=== PATIENT | female | born 1975 | race Caucasian/White ===

== ENCOUNTER 2020-10-12 09:39 | Emergency (ER) | payer MEDICARE, MEDICAID, SELFPAY ==
[2020-10-12 09:48] VITALS: BP 140/63; PULSE 68; RESP 16; TEMP 36.7; O2SAT 100; BMI 30.6
--- NOTE | 2020-10-12 10:16 | XR_ITS ---
EXAMINATION: XR CHEST CLINICAL INFORMATION: Pneumonia COMPARISON: 07/01/2019 TECHNIQUE: Frontal view of the chest was obtained. FINDINGS: The lungs are well expanded. There is no focal consolidation, edema, or effusion. No pneumothorax. The cardiomediastinal silhouette is within normal limits. No acute osseous abnormality. XR/XR chest 1V IMPRESSION: Clear lungs.
--- NOTE | 2020-10-12 10:29 | ED_ITS ---
HPI - General Adult General Chief complaint: General Medical Stated complaint: HEADACHE,DIZZY,NO TASTE OR SMELL Time Seen by Provider: 10/12/20 10:08 Source: patient Mode of arrival: ambulatory History of Present Illness HPI narrative: patient presents to the ED for headache, bilateral ear pain, with loss of smell and taste. Patient states her ex-boyfriend was around her the past couple of days ago coughing and was positive for pneumonia. She states her ex boyfriend is awaiting his COVID test results. Patient denies any nausea, vomiting, neck stiffness, night sweats, chills, or altered mental status. Patient does not describe dizziness as room spinning. Patient states just feels fatigued. Patient denies any slurred speech, loss of vision, paralysis of extremities, facial droop, or any recent head trauma. Patient denies any eye pain. Related Data Previous Rx's Medication Instructions Recorded naproxen 500 mg PO BID PRN #20 tab 10/12/20 Allergies Allergy/AdvReac Type Severity Reaction Status Date / Time mushroom Allergy Mild RASH Verified 10/12/20 09:52 amoxicillin [AMOXICILLIN] Allergy Unknown RASH Verified 10/12/20 09:52 Penicillins Allergy Unknown SHORTNESS Verified 10/12/20 09:52 OF BREATH/RASH TO CILLINS Review of Systems Review of Systems: Yes all other systems are reviewed and are negative Constitutional: Constitutional: Reports as per HPI, Reports no additional constitutional complaints, Reports fatigue and Reports headache(s) Comments: Loss of taste and smell Eyes: Eyes: Reports as per HPI and Reports no additional eye complaints ENT: Reports system reviewed and no additional complaints, except as documented, Reports as per HPI, Reports otalgia ( bilaterally) and Reports headache(s) Cardiovascular: Cardiovascular: Reports as per HPI and Reports no additional cardiovascular complaints Respiratory: Respiratory: Reports as per HPI and Reports no additional respiratory complaints Gastrointestinal: Gastrointestinal: Reports as per HPI and Reports no additional gastrointestinal complaints Genitourinary: Genitourinary: Reports no additional female genitourinary complaints and Reports as per HPI Musculoskeletal: Musculoskeletal: Reports no additional musculoskeletal complaints and Reports as per HPI Neurologic: Reports system reviewed and no additional complaints, except as documented, Reports as per HPI and Reports headache(s) Psychiatric: Psychiatric: Reports no additional psychiatric complaints and Reports as per HPI Endocrine: Endocrine: Reports fatigue PMFSH Past Medical History Medical History (Updated 10/12/20 @ 12:12 by YOLETTE Bennett) Ectopic HIV (human immunodeficiency virus infection) Surgical History (Updated 10/12/20 @ 09:51 by Lori Short) Hx of breast reduction, elective Hx of removal of ovary Social History Social History Smoking Status: Never smoker Use of substances other than those prescribed or required for medical reasons: No Advance Directives: No Advance Directives Information Provided: Yes Physical Exam Vital Signs: Vital Signs: Last Vital Signs Temp 98.2 F 10/12/20 11:41 Pulse 56 10/12/20 11:41 Resp 16 10/12/20 09:48 BP 139/86 10/12/20 11:41 Pulse Ox 100 10/12/20 11:41 Body Mass Index 30.6 Const: General: cooperative, healthy appearing, comfortable and no acute distress Orientation/consciousness: patient oriented x3 HENMT: Head: Yes normal to inspection, Yes No palpable skull fracture present, Yes atraumatic, No Joaquin's sign, No cranial bruits, No raccoon eyes and No Temporal artery tenderness present Ears: hearing grossly normal bilaterally, external ears normal and TM's normal bilaterally Throat: Yes posterior oropharynx normal, Yes tonsils normal and Yes uvula midline Eyes: Other: negative for nystagmus. Negative for photophobia General: appearance normal, both eyes and all related structures Neck: Neck: Yes normal visual inspection, Yes full ROM, Yes no lymphadenopathy, Yes no meningeal signs and Yes trachea midline Chest: Chest palpation & inspection: normal inspection of the chest, normal palpation of entire chest wall and no localized rib tenderness Resp: Effort & Inspection: normal respiratory effort and able to speak in complete sentences Auscultation: clear to auscultation bilaterally, no crackles, no rales and no rhonchi GI: Inspection: Yes normal to inspection and No abdominal wall ecchymosis Palpation (GI): Soft to palpation, not firm, nontender, no guarding and not rigid : General: No CVA tenderness and Yes no CVA tenderness Back/Spine/Pelvis: Back: no CVA tenderness, No CVA tenderness and No back tenderness Skin: General skin exam: no rashes or lesions noted Neuro: Other: negative for facial droop. negative pronator drift. Cranial nerves intact. Motor and strength of all extremities are intact and equal. General: patient oriented x3, gait normal, no meningeal signs and CN's II-XI intact bilaterally Cranial nerves: Yes CN's II-XII intact bilaterally Extrem: General: Yes normal to inspection and Yes full ROM Psych: Appearance: grossly normal, well kempt and not disheveled Course Course Course Narrative: History physical exam does not indicate meningitis or stroke. History physical exam indicate more viral syndrome. Patient had chest x-ray to rule out pneumonia. Patient also have COVID swab sent. Patient given Fioricet and Zofran for symptom of relief. Presently no labs indicated. Reevaluation(s) Reevaluation #1: patient headache relieved with meds. Presently once again unlikely patient having meningitis. Case discussed with attending Dr. 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 Patient presently not presenting with similar presentation for herpes virus meningitis. Patient states headache with loss of smell and loss of taste and possible COVID exposure. Patient will be discharged. Patient informed to return to the ED immediately if headaches worsen, altered mental status, neck stiffness, fever, chills, or any other concerning symptoms. patient informed signs of bacterial and aseptic meningitis. Patient's chest x-ray came back normal. Dr. Burch agree patient can be discharge. No head CT indicated. History and physical exam does not indicate neuro deficit. Time: 12:10 Medical Decision Making MDM Narrative Medical decision making narrative: Viral Syndrome Discharge Plan Discharge Clinical Impression: Acute viral syndrome Patient Disposition: Home, Self-Care Instructions: Acute Headache (ED), Viral Syndrome (ED) Additional Instructions: return to the ED immediately for worsening headache, fever, chills, neck stiffness, nausea, vomiting, weakness, slurred speech, loss of vision, or any other concerning symptoms. recommend 14 days self-isolation if COVID test come back positive. Prescriptions: New naproxen 500 mg tablet 500 mg PO BID PRN (Reason: pain) Qty: 20 RF: 0 Referrals: Cortez Corral MD [Primary Care Provider] - 2 days ( Viral syndrome. COVID swab pending.) Stand Alone Forms: Work/School Release Interventions: ED Discharge Assessment Last Done: 10/12/20 12:33 Discharge Date/Time: 10/12/20 12:34 Print Language: Latvian
[2020-10-12 11:41] VITALS: BP 139/86; PULSE 56; TEMP 36.8; O2SAT 100
--- NOTE | 2020-10-12 11:42 | PC.NURSE ---
Pt calm and cooperative in no apparent distress. Covid swab sent by previous RN. Awaiting results. VSS at this time. Pt informed on plan.
== END 2020-10-12 12:34 | disposition home or self-care (01) ==
PROVIDERS: Physician Assistant; Emergency Provider Emergency Medicine; PCP Internal Medicine
DX: B34.9 Viral infection, unspecified (principal); H92.03 Otalgia, bilateral; R51.9 Headache, unspecified; Z20.828 Contact with and (suspected) exposure to other viral communicable diseases
CPT/HCPCS: 71045; 99283; 99284; U0003

== ENCOUNTER 2021-08-03 12:44 | Outpatient (REF) | payer MEDICARE, MEDICAID, SELFPAY ==
--- NOTE | ~2021-08-03 | MM_ITS ---
EXAMINATION: MM SCREENING DIGITAL BREAST TOMOSYNTHESIS, BILATERAL CLINICAL INFORMATION: Screening. Asymptomatic. The lifetime risk of breast cancer based on the Tyrer-Cuzick Model is 8%. COMPARISON: Mammography: 07/28/2020, 01/07/2019, 12/29/2017 (baseline) TECHNIQUE: Digital breast tomosynthesis is performed in both the craniocaudal and mediolateral oblique views along with computer-aided detection (CAD). Synthesized 2D images are generated from the tomosynthesis. FINDINGS: The breasts are heterogeneously dense, which may obscure small masses (ACR BI-RADS breast composition Category c). Breast tissue composition borders on extremely dense. The parenchymal pattern is similar to prior exams. There is no developing density, significant mass, architectural abnormality. Right MLO view includes more of the lower posterior axilla and achieved previously. Small right axillary node is demonstrated. Again, there are scattered bilateral punctate calcifications. The skin contours are smooth. No significant changes. MM/MM tomosynthesis screening BI IMPRESSION: No mammographic evidence of malignancy. ASSESSMENT: BI-RADS 2: Benign RECOMMENDATION: Routine annual mammography screening. This patient's information was entered into a reminder system with a target due date for their next mammogram.
== END 2021-08-03 12:45 | disposition home or self-care (01) ==
LOC: HO.MAMMO 12:44
PROVIDERS: PCP Internal Medicine; Visit Provider Obstetrics & Gynecology
DX: Z12.31 Encounter for screening mammogram for malignant neoplasm of breast (principal)
CPT/HCPCS: 77063; 77067

== ENCOUNTER 2022-08-09 07:58 | Outpatient (REF) | payer MEDICARE, MEDICAID, SELFPAY ==
--- NOTE | ~2022-08-09 | MM_ITS ---
EXAMINATION: MM SCREENING DIGITAL BREAST TOMOSYNTHESIS, BILATERAL CLINICAL INFORMATION: Screening. Asymptomatic. The lifetime risk of breast cancer based on the Tyrer-Cuzick Model is 7.4%. COMPARISON: Mammography: August 03, 2021 and studies dating back to December 29, 2017 TECHNIQUE: Digital breast tomosynthesis is performed in both the craniocaudal and mediolateral oblique views along with computer-aided detection (CAD). Synthesized 2D images are generated from the tomosynthesis. FINDINGS: The breasts are heterogeneously dense, which may obscure small masses (ACR BI-RADS breast composition Category c). There are no significant masses, abnormal calcifications, or other abnormalities. MM/MM tomosynthesis screening BI IMPRESSION: No significant changes from prior exam. ASSESSMENT: BI-RADS 1: Negative RECOMMENDATION: Routine annual mammography screening. This patient's information was entered into a reminder system with a target due date for their next mammogram.
== END 2022-08-09 07:59 | disposition home or self-care (01) ==
LOC: HO.MAMMO 07:58
PROVIDERS: PCP Internal Medicine; Visit Provider Internal Medicine
DX: Z12.31 Encounter for screening mammogram for malignant neoplasm of breast (principal)
CPT/HCPCS: 77063; 77067

== ENCOUNTER → 2023-03-14 12:50 | Outpatient (BNVA) | payer MEDICARE, MEDICAID, SELFPAY | PROVIDERS: PCP Internal Medicine; Visit Provider Physician Assistant | DX: M53.3 Sacrococcygeal disorders, not elsewhere classified (principal); G89.29 Other chronic pain | CPT/HCPCS: Q3014 ==

== ENCOUNTER → 2023-08-19 08:15 | Outpatient (BNV) | payer MEDICARE, MEDICAID, SELFPAY | PROVIDERS: Visit Provider Radiology Diagnostic Radiology | DX: Z12.31 Encounter for screening mammogram for malignant neoplasm of breast (principal) | CPT/HCPCS: 77063; 77067 ==

== ENCOUNTER 2023-08-19 08:20 | Outpatient (REF) | payer MEDICARE, MEDICAID, SELFPAY ==
--- NOTE | ~2023-08-19 | MM_ITS ---
EXAMINATION: MM SCREENING DIGITAL BREAST TOMOSYNTHESIS, BILATERAL CLINICAL INFORMATION: Screening. Asymptomatic. The patient has had a prior breast reduction. COMPARISON: Mammography: This study is compared with prior exams dating back to 2019. TECHNIQUE: Digital breast tomosynthesis is performed in both the craniocaudal and mediolateral oblique views along with computer-aided detection (CAD). Synthesized 2D images are generated from the tomosynthesis. FINDINGS: The breasts are heterogeneously dense, which may obscure small masses (ACR BI-RADS breast composition Category c). There are no significant masses, abnormal calcifications, or other abnormalities. Post reduction changes are present in each breast. MM/MM tomosynthesis screening BI IMPRESSION: No mammographic evidence of malignancy. ASSESSMENT: BI-RADS BI-RADS 1 - Negative RECOMMENDATION: Routine annual mammography screening. 1 year F/U This examination should not preclude the clinical evaluation of a suspicious palpable abnormality. This patient's information was entered into a reminder system with a target due date for their next mammogram.
== END 2023-08-19 08:21 | disposition home or self-care (01) ==
LOC: HO.MAMMO 08:20
PROVIDERS: Visit Provider Internal Medicine
DX: Z12.31 Encounter for screening mammogram for malignant neoplasm of breast (principal)
CPT/HCPCS: 77063; 77067

== ENCOUNTER 2024-08-27 07:43 | Outpatient (REF) | payer MEDICARE, MEDICAID, SELFPAY ==
--- NOTE | ~2024-08-27 | MM_ITS ---
EXAMINATION: MM SCREENING DIGITAL BREAST TOMOSYNTHESIS, BILATERAL CLINICAL INFORMATION: Screening. Asymptomatic. COMPARISON: Mammography: Comparison is made with available priors TECHNIQUE: Digital breast mammography with tomosynthesis is performed in both the craniocaudal and mediolateral oblique views along with computer-aided detection (CAD). FINDINGS: The breasts are extremely dense, which lowers the sensitivity of mammography (ACR BI-RADS breast composition Category d). Bilateral reduction mammoplasty changes. There are no significant masses, abnormal calcifications, or other abnormalities. MM/MM tomosynthesis screening BI IMPRESSION: No mammographic evidence of malignancy. ASSESSMENT: BI-RADS BI-RADS 2 - Benign Findings RECOMMENDATION: Routine annual mammography screening. 1 year F/U This examination should not preclude the clinical evaluation of a suspicious palpable abnormality. This patient's information was entered into a reminder system with a target due date for their next mammogram. Electronically signed by: Layla Arauz DO 09/05/2024 06:36 PM EDT
== END 2024-08-27 07:44 | disposition home or self-care (01) ==
LOC: HO.MAMMO 07:43
PROVIDERS: PCP Internal Medicine; Visit Provider Internal Medicine
DX: Z12.31 Encounter for screening mammogram for malignant neoplasm of breast (principal)
CPT/HCPCS: 77063; 77067

== ENCOUNTER → 2024-08-27 08:00 | Outpatient (BNV) | payer MEDICARE, MEDICAID, SELFPAY | PROVIDERS: PCP Internal Medicine; Visit Provider Internal Medicine | DX: Z12.31 Encounter for screening mammogram for malignant neoplasm of breast (principal) | CPT/HCPCS: 77063; 77067 ==

== ENCOUNTER 2025-10-18 08:47 | Outpatient (REF) | payer MEDICARE, MEDICAID, SELFPAY ==
--- OUTSIDE RECORDS SUMMARY | 2025-03-03 05:00 | XMS_ITS ---
Author Organization [email or web address] Address [address], [place] [id number] Care Team Providers Care Heavy Equipment Service Manager Name Role Phone ISRA LUCAS Primary Care Provider [phone] ALLERGIES Allergen (clinical drug ingredient) Drug/Non Drug Allergy documented on EMR Reaction Allergy Type Onset Date Status amoxicillin Amoxicillin rash, throat swelling, cough Drug Allergy Active REASON FOR REFERRAL Reason HOLD FOR LOCKED NOTE Referral for colonoscopy Diagnosis 1 Colon cancer screeni kate (Z12.11) Referral Organization [facility] Referring Provider First Name ISRA Referring Provider Last Name SHAYY Referring Provider Speciality Internal M edicine Referred Provider SUNNY SIMON Referred Provider Specialty Gastroentero logy General Notes HOLD FOR LOCKED NOTE Referral Priority Urgent REASON FOR VISIT NPT/AWV, covid screen negative MEDICATIONS Medication SIG (Take, Route, Fr equency, Duration) Notes Start Date End Date Status Biktarvy 50-200-25 MG take 1 tablet by o ral route every day Oral Active Wellbutrin XL 150 MG take 1 tablet by or al route every day Oral Active LORazepam 0.5 MG 1 tablet as needed O rally Once a day Active SOCIAL HISTORY Tobacco Use: Social History Observation Description Date Details (start date - stop date) Never Smoker NA - NA Sex Assigned At : Social History Observation Description Sex Assigned At Unknown Smoking Question Answer Notes Are you a: never smoker PROBLEMS Problem Type ICD Code Onset Dates Problem Status W/U Status Risk SNOMED Code Notes Problem Degeneration of intervertebral disc of lumbar region with discogenic back pain and lower extremity pain (M51.362) Active confirmed 75464694 Problem Morbid (severe) obesity due to excess calories (E66.01) Active confirmed 828191828 Problem Body mass index [BMI] 35.0-35.9, adult (Z68.35) Active confirmed 807204103 Problem Obesity, class 2 (E66.812) Active confirmed [id number] VITAL SIGNS Height 63.75 in 03/03/2025 Weight 205.4 lbs 03/03/2025 Blood pressure systolic 136 mm Hg 03/03/20 25 Blood pressure diastolic 84. 126 mm Hg 025 BMI 35.53 kg/m2 03/03/2025 Encounters Encounter Location Date Provider Diagnosis [facility] [address] [place] [address] 03/03/2025 [facility] Human immunodeficien cy virus [HIV] disease B20 ; Vitamin D deficiency, unspecified E55.9 ; Degeneration of intervertebral disc of lumbar region with discogenic back pain and lower extremity pain M51.362 ; Morbid (severe) obesity due to excess calories E66.01 ; Body mass index [BMI] 35.0-35.9, adult Z68.35 ; Obesity, class 2 E66.812 ; Elevated blood pressure reading R03.0 ; Encounter for general adult medical examination with abnormal findings Z00.01 and Colon cancer screening Z12.11 ASSESSMENTS Encounter Date Diagnosis Assessment Notes Treatment Notes Treatment Clinical Notes Section Notes 03/03/2025 Human immunodeficiency virus [HIV] disease (ICD-10 - B20) 1. Routine healthcare maintenance: Needs colonoscopy. Will refer. She will update fasting blood work 2. HIV: Will update labs on current Biktarvy 3. Vitamin D deficiency: Will update level. She is currently off supplementation 4. Lumbar degenerative disc disease: She plans to follow-up with for further recommendations 5. Obesity: We will check an A1c and thyroid function along with blood work. Questionable for GLP-1 agonist 6. Elevated blood pressure: Improved over the course of her visit. No treatment at this time 03/03/2025 Vitamin D deficiency, unspecified (ICD-10 - E55.9) 1. Routine healthcare maintenance: Needs colonoscopy. Will refer. She will update fasting blood work 2. HIV: Will update labs on current Biktarvy 3. Vitamin D deficiency: Will update level. She is currently off supplementation 4. Lumbar degenerative disc disease: She plans to follow-up with for further recommendations 5. Obesity: We will check an A1c and thyroid function along with blood work. Questionable for GLP-1 agonist 6. Elevated blood pressure: Improved over the course of her visit. No treatment at this time 03/03/2025 Degeneration of intervertebral disc of lumbar region with discogenic back pain and lower extremity pain (ICD-10 - M51.362) 1. Routine healthcare maintenance: Needs colonoscopy. Will refer. She will update fasting blood work 2. HIV: Will update labs on current Biktarvy 3. Vitamin D deficiency: Will update level. She is currently off supplementation 4. Lumbar degenerative disc disease: She plans to follow-up with for further recommendations 5. Obesity: We will check an A1c and thyroid function along with blood work. Questionable for GLP-1 agonist 6. Elevated blood pressure: Improved over the course of her visit. No treatment at this time 03/03/2025 Morbid (severe) obesity due to excess calories (ICD-10 - E66.01) 1. Routine healthcare maintenance: Needs colonoscopy. Will refer. She will update fasting blood work 2. HIV: Will update labs on current Biktarvy 3. Vitamin D deficiency: Will update level. She is currently off supplementation 4. Lumbar degenerative disc disease: She plans to follow-up with for further recommendations 5. Obesity: We will check an A1c and thyroid function along with blood work. Questionable for GLP-1 agonist 6. Elevated blood pressure: Improved over the course of her visit. No treatment at this time 03/03/2025 Body mass index [BMI] 35.0-35.9, adult (ICD-10 - Z68.35) 1. Routine healthcare maintenance: Needs colonoscopy. Will refer. She will update fasting blood work 2. HIV: Will update labs on current Biktarvy 3. Vitamin D deficiency: Will update level. She is currently off supplementation 4. Lumbar degenerative disc disease: She plans to follow-up with for further recommendations 5. Obesity: We will check an A1c and thyroid function along with blood work. Questionable for GLP-1 agonist 6. Elevated blood pressure: Improved over the course of her visit. No treatment at this time 03/03/2025 Obesity, class 2 (ICD-10 - E66.812) 1. Routine healthcare maintenance: Needs colonoscopy. Will refer. She will update fasting blood work 2. HIV: Will update labs on current Biktarvy 3. Vitamin D deficiency: Will update level. She is currently off supplementation 4. Lumbar degenerative disc disease: She plans to follow-up with for further recommendations 5. Obesity: We will check an A1c and thyroid function along with blood work. Questionable for GLP-1 agonist 6. Elevated blood pressure: Improved over the course of her visit. No treatment at this time 03/03/2025 Elevated blood pressure reading (ICD-10 - R03.0) 1. Routine healthcare maintenance: Needs colonoscopy. Will refer. She will update fasting blood work 2. HIV: Will update labs on current Biktarvy 3. Vitamin D deficiency: Will update level. She is currently off supplementation 4. Lumbar degenerative disc disease: She plans to follow-up with for further recommendations 5. Obesity: We will check an A1c and thyroid function along with blood work. Questionable for GLP-1 agonist 6. Elevated blood pressure: Improved over the course of her visit. No treatment at this time 03/03/2025 Encounter for general adult medical examination with abnormal findings (ICD-10 - Z00.01) 1. Routine healthcare maintenance: Needs colonoscopy. Will refer. She will update fasting blood work 2. HIV: Will update labs on current Biktarvy 3. Vitamin D deficiency: Will update level. She is currently off supplementation 4. Lumbar degenerative disc disease: She plans to follow-up with for further recommendations 5. Obesity: We will check an A1c and thyroid function along with blood work. Questionable for GLP-1 agonist 6. Elevated blood pressure: Improved over the course of her visit. No treatment at this time 03/03/2025 Colon cancer screening (ICD-10 - Z12.11) 1. Routine healthcare maintenance: Needs colonoscopy. Will refer. She will update fasting blood work 2. HIV: Will update labs on current Biktarvy 3. Vitamin D deficiency: Will update level. She is currently off supplementation 4. Lumbar degenerative disc disease: She plans to follow-up with for further recommendations 5. Obesity: We will check an A1c and thyroid function along with blood work. Questionable for GLP-1 agonist 6. Elevated blood pressure: Improved over the course of her visit. No treatment at this time PLAN OF TREATMENT Medication Medication Name Sig Start Date Stop Date Notes Biktarvy 50-200-25 MG take 1 tablet by o ral route every day Oral Future Test Test Name Order Date CBC With Differential/Platelet-[id number] Referrals Referral Date Details HOLD FOR LOCKED NOTE Referral for SUNNY lindquist Next Appt Details Follow Up: 3 Months, Reason: Provider Name:ISRA LUCAS , 10/31/2025 02:45:00 PM, [address] [place], [address], Progress Notes * Examination Category Sub-Category Detail Notes Category Not es General Examination HEENT: PERRLA, EOMI bilatera lly, nose clear Neck: supple, no lymphaden opathy, no thyromegaly Heart: RSR, normal S1S2 Lungs: clear to auscultatio n Abdomen: soft, non tender/non distended, no rebound tenderness, no guarding or rigidity Extremities: no edema General Appearance no apparent distress , pleasant Skin: normal, no rash Neuro alert and oriented x 3, gait normal Oral cavity: no lesions Peripheral pulses: Bilateral radial pre sent, Bilateral posterior tibial present, BilateralCarotids present No Bruits, Back: no CVA tenderness, s traight leg raise normal, , no spinal tenderness Lymphatics No nodes in neck Psych: oriented X 3, affect normal History and Physical Notes * HPI (History of Present Illness) Category Sub-Category Detail Notes Category Not es Depression Screening PHQ-2 (2015 Edition) Little interest or pleasure in doing things?: Several days Patient is feeling generally well except for ongoing low back pain. She reports sent her to a toll transmission worker for injections ( ? Dr Mayfield) but these have not been helpful and are very painful to her when receiving. She reports mood is stable on current medication. She has been taking her antivirals faithfully as ordered and is due to see infectious disease in a little over a week Feeling down, depressed, or hopeless?: N ot at all Total Score: 1 Consultation Request Notes Referral Date Referring Provider Referred Provider Not es 03/03/2025 ISRA LUCAS JOANNA HOLD FOR ExpertFileED NOTE Referral for colonoscopy
--- OUTSIDE RECORDS SUMMARY | 2025-03-07 01:45 | XMS_ITS ---
Author Organization [facility] Address [address] [place], [place] [id number] Care Team Providers Care Ball Sorter Name Role Phone ISRA LUCAS Primary Care Provider [phone] REASON FOR VISIT labs Encounters Encounter Location Date Provider Diagnosis [facility] [address] [place] [phone] 03/07/2025 ISRA LUCAS PLAN OF TREATMENT Next Appt Details Provider Name:ISRA LUCAS , 10/31/2025 02:45:00 PM, [address] [place], [phone],
--- OUTSIDE RECORDS SUMMARY | 2025-09-04 04:30 | XMS_ITS ---
Author Organization [facility] Address [address], [place] [id number] Care Team Providers Care Sales And Marketing Manager Name Role Phone ISRA LUCAS Primary Care Provider ALLERGIES Allergen (clinical drug ingredient) Drug/Non Drug Allergy documented on EMR Reaction Allergy Type Onset Date Status peanuts, cashews (uncoded) cough, tingly lip Allergy Active amoxicillin Amoxicillin rash, throat swelling, cough Drug Allergy Active RESULTS Component Value Reference Range Notes MRI Lumbar Spine without con trast Reviewed date:09/22/2025 12:59:50 PM Interpretation: Performing Lab: Notes/Report: MRI Lumbar Spine without con trast Reviewed date:09/22/2025 12:59:50 PM Interpretation: Performing Lab: Notes/Report: REASON FOR REFERRAL Reason 09/08/25 W APPT New pt appt [facility] Allergy Diagnosis 1 Allergic reaction, i nitial encounter (T78.40XA) Referral [facility] Referring Provider First Name ISRA Referring Provider Last Name SHAYY Referring Provider Speciality Internal M edicine Referred Provider Specialty Allergy/Immu nology General Notes HOLD, NEHA,Denisse P Adm in 09/08/2025 12:23:13 PM > faxed medical referral, note and most recent labs to [facility] allergy at [phone] requesting an URGENT referral>no referral required Referral Priority Urgent REASON FOR VISIT f/u, gets flu vacc at specialty or had it already MEDICATIONS Medication SIG (Take, Route, Frequency, Duration) Notes Start Date End Date Status EpiPen 2-Rolly 0.3 MG/0.3ML as directed In jection as directed for 30 day(s) 09/04/2025 Active Biktarvy 50-200-25 MG take 1 tablet by o ral route every day Oral Active Wellbutrin XL 150 MG take 1 tablet by or al route every day Oral Active Gabapentin 100 MG 1 capsule Orally at bedtime x 3 days then 1 po bid x 3 days then 1 po tid for 30 day(s) 09/04/2025 Active LORazepam 0.5 MG 1 tablet as needed O rally Once a day Active SOCIAL HISTORY Tobacco Use: Social History Observation Description Date Details (start date - stop date) Never Smoker NA - NA Sex Assigned At : Social History Observation Description Sex Assigned At Unknown Smoking Question Answer Notes Are you a: never smoker VITAL SIGNS Height 63.75 in 09/04/2025 Weight 207.2 lbs 09/04/2025 Blood pressure systolic 110 mm Hg 09/04/20 25 Blood pressure diastolic 90 mm Hg 025 BMI 35.84 kg/m2 09/04/2025 Encounters Encounter Location Date Provider Diagnosis [facility] [address] [place] [address] 09/04/2025 [facility] Degeneration of intervertebral disc of lumbar region with discogenic back pain and lower extremity pain M51.362 ; Human immunodeficiency virus [HIV] disease B20 and Allergic reaction, initial encounter T78.40XA ASSESSMENTS Encounter Date Diagnosis Assessment Notes Treatment Notes Treatment Clinical Notes Section Notes 09/04/2025 Degeneration of intervertebral disc of lumbar region with discogenic back pain and lower extremity pain (ICD-10 - M51.362) 1. Lumbar degenerative disc disease: We will update an MRI to see if there is a role for any further intervention. In the meantime we will try gabapentin and titrate up gradually to 100 mg 3 times a day. She will reassess with me in a month 2. HIV: Stable on current Biktarvy. Continue present therapy 3. Allergic reaction: Question new nut allergy. Unusual that appears to have happened both with peanuts and cashews. Will provide an EpiPen and have him avoid nuts at present. I will send her to the metal mine inspector for testing 09/04/2025 Human immunodeficiency virus [HIV] disease (ICD-10 - B20) 1. Lumbar degenerative disc disease: We will update an MRI to see if there is a role for any further intervention. In the meantime we will try gabapentin and titrate up gradually to 100 mg 3 times a day. She will reassess with me in a month 2. HIV: Stable on current Biktarvy. Continue present therapy 3. Allergic reaction: Question new nut allergy. Unusual that appears to have happened both with peanuts and cashews. Will provide an EpiPen and have him avoid nuts at present. I will send her to the metal mine inspector for testing 09/04/2025 Allergic reaction, initial encounter (ICD-10 - T78.40XA) 1. Lumbar degenerative disc disease: We will update an MRI to see if there is a role for any further intervention. In the meantime we will try gabapentin and titrate up gradually to 100 mg 3 times a day. She will reassess with me in a month 2. HIV: Stable on current Biktarvy. Continue present therapy 3. Allergic reaction: Question new nut allergy. Unusual that appears to have happened both with peanuts and cashews. Will provide an EpiPen and have him avoid nuts at present. I will send her to the metal mine inspector for testing PLAN OF TREATMENT Medication Medication Name Sig Start Date Stop Date Notes EpiPen 2-Rolly 0.3 MG/0.3ML as directed In jection as directed for 30 day(s) 09/04/2025 Biktarvy 50-200-25 MG take 1 tablet by o ral route every day Oral Gabapentin 100 MG 1 capsule Orally at bedtime x 3 days then 1 po bid x 3 days then 1 po tid for 30 day(s) 09/04/2025 Referrals Referral Date Details 09/08/25 W APPT New pt appt [facility] Allergy Next Appt Details Provider Name:ISRA LUCAS , 10/31/2025 02:45:00 PM, [address] [place], [address], Progress Notes * Examination Category Sub-Category Detail Notes Category Not es General Examination HEENT: NC/AT, EOMI,PERRL, an d TM's WNL Heart: RSR, normal S1S2 Lungs: clear to auscultatio n Extremities: no edema General Appearance no apparent distress , pleasant Back: Tender over the lower lumbar spinous processes and paraspinous muscles bilaterally Straight leg raise is positive bilaterally Quadriceps and Achilles reflexes 2+ bilaterally Sensation in lower extremities intact Motor strength in legs symmetric but being limited Psych: alert, oriented X 3 Other normal affect History and Physical Notes * HPI (History of Present Illness) Category Sub-Category Detail Notes Category Not es General Patient c/o persistent low back pain radiating doen into thighs. Little relief from tylenol. Prior injection at [facility] have not helped. She has not had updated imaging in a long time. She does not have any numbness or tingling in her legs, just pain Patient also reports several episodes recently where she felt like she had a reaction to nuts. She ate brownies with peanut butter in them and felt like her throat swelled and felt somewhat short of breath. She had another similar episode with peanuts and then an episode with cashews where her lips felt swollen and tingling. She has never had an adverse reaction to nuts in the past. Patient saw infectious disease approximately 5 months ago and has been fully suppressed on her current regimen Consultation Request Notes Referral Date Referring Provider Referred Provider Not es 09/04/2025 ISRA LUCAS , 09/08/25 W RENITA Curt Sanchez pt appt [facility]
--- OUTSIDE RECORDS SUMMARY | 2025-09-19 11:10 | XMS_ITS ---
Author Organization [facility] Address [address], [place] [id number] Care Team Providers Care Small Parts Assembler Name Role Phone SHAYY ISRA Primary Care Provider [phone] REASON FOR REFERRAL Reason Appt Dr Cruz [facility] Please send MRI Diagnosis 1 Degeneration of inte rvertebral disc of lumbar region with discogenic back pain and lower extremity pain (M51.362) Referral Organization [facility] Referring Provider First Name ISRA Referring Provider Last Name SHAYY Referring Provider Speciality Internal M edicine Referred Provider KIANA CRUZ Referred Provider Specialty Neurological Surgery Referral Priority Urgent REASON FOR VISIT Dr. Brantley/allergy test Encounters Encounter Location Date Provider Diagnosis [address] [address] 09/19/2025 ISRA MONIQUEFORD Degeneration of intervertebral disc of lumbar region with discogenic back pain and lower extremity pain M51.362 ASSESSMENTS Encounter Date Diagnosis Assessment Notes Treatment Notes Treatment Clinical Notes Section Notes 09/19/2025 Degeneration of intervertebral disc of lumbar region with discogenic back pain and lower extremity pain (ICD-10 - M51.362) PLAN OF TREATMENT Referrals Referral Date Details Appt Dr Cruz [facility] Please send KIANA HALLMAN Next Appt Details Provider Name:ISRA Tessa SHAYY , 10/31/2025 02:45:00 PM, [address] [place], [address], Consultation Request Notes Referral Date Referring Provider Referred Provider Not es 09/22/2025 ISRA LUCAS FREDERIK Appt Dr Cruz [facility] Please send MRI
--- OUTSIDE RECORDS SUMMARY | 2025-10-07 05:30 | XMS_ITS ---
Author Organization [facility] Address [address], [place] [id number] Care Team Providers Care Gasoline Truck Operator Name Role Phone ISRA LUCAS Primary Care Provider REASON FOR VISIT rescheduled appt Encounters Encounter Location Date Provider Diagnosis [facility] [address] [place] [address] 10/07/2025 ISRA LUCAS PLAN OF TREATMENT Next Appt Details Provider Name:ISRA LUCAS , 10/31/2025 02:45:00 PM, [address] [place], [address],
--- OUTSIDE RECORDS SUMMARY | 2025-10-08 04:15 | XMS_ITS ---
Author Organization [facility] Address [address] [place], [place] [id number] Care Team Providers Care Public Relations Assistant Name Role Phone ISRA LUCAS Primary Care Provider [phone] REASON FOR VISIT 41/ 1mo Encounters Encounter Location Date Provider Diagnosis [facility] [address] [place] [address] 10/08/2025 ISRA LUCAS PLAN OF TREATMENT Next Appt Details Provider Name:ISRA LUCAS , 10/31/2025 02:45:00 PM, [address] [place], [address],
--- OUTSIDE RECORDS SUMMARY | 2025-10-16 23:59 | XMS_ITS | Continuity of Care Document ---
Author Organization [facility] Address [address] [place] [address]- Care Team Providers Care Senior Executive Compensation Analyst Name Role Phone Ellis BONDS, Cortez Zarate Primary Care Physician [phone] Encounter [facility] Date(s): 09/16/25 - 10/16/25 [facility] [address] [place] [address]- Attending Physician: Petra Hall Admitting Physician: AdmPetra rodriguez Referring Physician: Admtr ArNasrin Encounter Type: Triage Allergies, Adverse Reactions, Alerts Substance Criticality Severity Reaction Reaction Severity Status amoxicillin rash/difficulty breathing Active penicillin rash/difficulty breathing Active Other Food Allergy rash mushrrooms Active Immunizations Given and Recorded Vaccine Date Status Refusal Reason influenza virus vaccine, inactivated 10/12/22 Give n influenza virus vaccine, inactivated 09/05/19 Isaiah rded influenza virus vaccine, inactivated 02/05/19 Isaiah rded tetanus/diphtheria/pertussis, acel(Tdap) 12/29/21 Given SARS-CoV-2 (COVID-19) mRNA BNT-162b2 vac 05/06/21 Recorded SARS-CoV-2 (COVID-19) mRNA BNT-162b2 vac 04/15/21 Recorded pneumococcal 23-valent vaccine 07/20/16 Recorded pneumococcal 13-valent vaccine 08/01/15 Recorded hepatitis B adult vaccine 11/13/14 Recorded hepatitis B adult vaccine 06/17/14 Recorded hepatitis B adult vaccine 05/07/14 Recorded Hepatitis A Adult Vaccine 11/13/14 Recorded Hepatitis A Adult Vaccine 06/17/14 Recorded Hepatitis A Adult Vaccine 05/07/14 Recorded Medications Biktarvy 50 mg-200 mg-25 mg oral tablet 1 tablet, By Mouth, Daily, # 30 tablet, 5 Refills, Maintenance, 09/29/25 12:53:00 PM EST, Tablet, [id number], Partial fill upon patient request if the prescription is for a schedule II opioid drug., 1 tablet By Mouth Daily,x30 days, 164, cm, 05/14/25 10:05:00 EDT, Height, 92.2, kg, 03/13/25 11:29:00 EDT, Dry Weight Start Date: 09/29/25 Stop Date: 03/28/26 Status: Ordered Medication Dispense Status: Completed Quantity: 30.0 Unit: tablet Total Allowed Fills: 6 Fills Dispensed: 0 buPROPion 150 mg/24 hours (XL) oral tablet, extended release 1 tablet = 150 mg, By Mouth, Every 24 hours, # 30 tablet, 0 Refills, Maintenance, 02/23/21 1:25:00 PM EDT, ER Tablet, Partial fill upon patient request if the prescription is for a schedule II opioid drug. Start Date: 02/23/21 Status: Ordered Medication Dispense Status: Completed Quantity: 30.0 Unit: tablet Total Allowed Fills: 1 Fills Dispensed: 0 LORazepam 0.5 mg oral tablet 0.5 tablet = 0.25 mg, By Mouth, Once, 0 Refills, Maintenance, 02/23/21 1:24:00 PM EDT, Tablet, Partial fill upon patient request if the prescription is for a schedule II opioid drug. Start Date: 02/23/21 Status: Ordered Medication Dispense Status: Completed Total Allowed Fills: 1 Fills Dispensed: 0 norethindrone 5 mg oral tablet 5 mg, 1, tablet, By Mouth, Daily, may take 1 tablet twice a day until bleeding stops and then resume one tablet daily., # 90 tablet, Refills 2, Tot. Refills 2, Maintenance, 04/17/25 10:50:00 AM EDT, Do Not Route, Partial fill upon patient request if the prescription is for a schedule II opioid drug. Start Date: 04/17/25 Status: Ordered Medication Dispense Status: Completed Quantity: 90.0 Unit: tablet Total Allowed Fills: 3 Fills Dispensed: 0 Tylenol 325 mg oral capsule 2 capsule = 650 mg, By Mouth, Every 4 hours, PRN Pain , Mild, # 30 capsule, 0 Refills, Maintenance,08/02/19 9:50:40 AM EDT, Capsule, [facility] Start Date: 08/02/19 Status: Ordered Medication Dispense Status: Completed Quantity: 30.0 Unit: capsule Total Allowed Fills: 1 Fills Dispensed: 0 Problem List Condition Confirmation Course Effective Dates Status Health St atus Informant Asymptomatic HIV infection Confirmed Active Atypical glandular cells of undetermined significance (CHICO) on cervical Pap smear Confirmed Active Depression Confirmed Active HIV positive Confirmed Active Menorrhagia with irregular cycle Confirmed Active Obese class I Confirmed Active Panic attacks Confirmed Active Social History Social History Type Response Smoking Status Never (less than 100 in lifetime) entered on: 09/05/19 Sexual Orientation Self described orien tation: ; Straight or heterosexual Sex Sex Representation Female (finding) Patient Care team information Care Team Personnel Name: Cortez Corral MD Position: [facility] Physician - Primary Care Member Role: PCP Address: [address] [place] [address]- Telecom: Name: Serina Copeland MD Position: [facility] Physician - Infectious Disease Member Role: Lifetime Consulting Physician Address: [address] [place] [address] [place] [address] Telecom: Care Team Related Persons Name: PRIYANKA ARMENTA Name: EVITA LUONG Insurance Providers Guarantor name: ADRIENNE Health Plan Information #: 1 Payer: MEDICARE B Payer Identifier: NA Member Number: [id number] Group Number: NA Subscriber Identifier: NA Relationship to Subscriber: self Coverage Type: NA Coverage Verification Date: Telecom: Address: Health Plan Information #: 2 Payer: [employer]UST[employer]ER [employer] Payer Identifier: NA Member Number: [id number] Group Number: NA Subscriber Identifier: NA Relationship to Subscriber: self Coverage Type: MEDICAID Coverage Verification Date: Telecom: Address:
--- OUTSIDE RECORDS SUMMARY | 2025-10-16 23:59 | XMS_ITS | Continuity of Care Document ---
Author Organization [facility] Address [address] [place] [address]- Care Team Providers Care Equipment Analyst Name Role Phone Ellis BONDS, Cortez Zarate Primary Care Physician Encounter [facility] Date(s): 06/18/25 - 10/16/25 [facility] [address] [place], [place] [address] Attending Physician: Isabell BONDS, Fernanda Mendes Encounter Type: Pre Office Visit Allergies, Adverse Reactions, Alerts Substance Criticality Severity [...] Refills, Maintenance, 09/29/25 12:53:00 PM EST, Tablet, [id number], Partial fill upon patient request if the [...] 0 Refills, Maintenance,08/02/19 9:50:40 AM EDT, Capsule, [facility] Start Date: 08/02/19 Status: Ordered [...] Team Personnel Name: Cortez Corral MD Position: [facility] Physician - Primary Care Member Role: PCP Address: [address] [place] [address]- Telecom: Name: Serina Copeland MD Position: [facility] Physician - Infectious Disease Member Role: Lifetime Consulting Physician Address: [address] [place] [address] Telecom: Care Team Related Persons Name: PRIYANKA ARMENTA Name: EVITA LUONG Insurance Providers Guarantor name: ADRIENNE Health Plan Information #: 1 Payer: MEDICARE B Payer Identifier: Member Number: [id number] Group Number: Subscriber Identifier: [id number] Relationship to Subscriber: self Coverage Type: NA Coverage Verification Date: Telecom: Address: Health Plan Information #: 2 Payer: [employer]ER SERVICE Payer Identifier: NA Member Number: [id number] Group Number: Subscriber Identifier: [id number] Relationship to Subscriber: self Coverage Type: MEDICAID Coverage Verification Date: Telecom: Address:
--- NOTE | ~2025-10-18 | MM_ITS ---
EXAMINATION: MM SCREENING DIGITAL BREAST TOMOSYNTHESIS, BILATERAL CLINICAL INFORMATION: Screening. Asymptomatic. History of bilateral reduction mammoplasty. COMPARISON: Comparison made to multiple prior, most recent August 27, 2024, and most remote December 29, 2017. TECHNIQUE: Digital breast tomosynthesis is performed in mediolateral oblique and craniocaudal views along with computer-aided detection (CAD). Synthesized 2D images are generated from the tomosynthesis. FINDINGS: BREAST COMPOSITION: There are scattered areas of fibroglandular density. BILATERAL BREASTS: History of bilateral reduction mammoplasty. No significant masses, suspicious calcifications or other abnormalities are seen in either breast. MM/MM tomosynthesis screening BI IMPRESSION: BILATERAL BREASTS: Benign, no mammographic evidence of malignancy. Normal interval follow-up is recommended in 12 months. ASSESSMENT: BI-RADS: Category 2: Benign RECOMMENDATION: Routine annual mammography screening. FOLLOW-UP: 1 year F/U This examination should not preclude the clinical evaluation of a suspicious palpable abnormality. This patient's information was entered into a reminder system with a target due date for their next mammogram. Electronically signed by: Samina Lawson MD 10/20/2025 07:48 PM [facility]
--- OUTSIDE RECORDS SUMMARY | 2025-10-18 08:50 | XMS_ITS | Clinical Summary ---
Author Organization [facility] Address [address] [place] [address] Phone Care Team Providers Care Association Executive Name Role Phone Cortez Corral MD Primary Care Provider [phone] Encounters Date Type Department Care Team Description 09/19/2025 9:26 AM EDT - 09/19/2025 11:59 PM EDT Hospital Encounter [facility] MRI [address] [place] [address] Other intervertebral disc degeneration, lumbar region with discogenic back pain and lower extremity pain Discharge Disposition: Home or Self Care from Last 3 Months Surgical History Surgery Date Site/Laterality Comments BREAST REDUCTION PROCEDURE: NH BREAST REDUCTION OTHER SURGICAL HISTORY 02/2008 PROCEDURE: NH LYSIS OF ADHESIONS SALPINX/OVARY OTHER SURGICAL HISTORY PROCEDURE: NH DILATION & CURETTAGE DX&/THER NONOBSTETRIC TUBAL LIGATION PROCEDURE: HISTORICAL TUBAL LIGATION EYE SURGERY PROCEDURE: HISTORICAL EYE SURGERY; COMMENT: Lasik Medical History Medical History Date Comments Anxiety 10/24/2018 DX:Anxiety HIV (human immunodeficiency virus infection) ([facility] V24, [facility] V28) 10/24/2018 DX:HIV (human im munodeficiency virus infection) ([facility]); COMMENT: 1998, On HAART History of chlamydia 10/24/2018 DX:History of chlamydia; COMMENT: treated Depression 10/24/2018 DX:Depression; C OMMENT: IP admit SA DJD (degenerative joint dise ase), lumbar 10/24/2018 DX:DJD (degenerative joint d isease), lumbar Viral meningitis 12/21/2018 DX:Viral mening itis; COMMENT: 08/2016 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; COMMENT: 08/2016 Lumbar radiculopathy 03/15/2021 DX:Lumbar r adiculopathy; COMMENT: Left Family History Medical History Relation Name Comments Diabetes Mother Diabetes Sister Relation Name Status Comments Mother Sister Social History Tobacco Use Types Packs/Day Years Used Date Smoking Tobacco: Never Smokeless Tobacco: Never Alcohol Use Standard Drinks/Week Comments No 0 (1 standard drink = 0.6 oz pur e alcohol) Comments Unknown Sex and Gender Information Value Date Recorded Sex Assigned at Not on file Legal Sex Female 11:29 PM EST Gender Identity Not on file Sexual Orientation Not on file Obstetrics History Plan of Treatment Health Maintenance Due Date Last Done Comments Breast Cancer Screening 1976 Colorectal Cancer Screening: Colonoscopy 1976 Meningococcal ACWY Vaccine (1 - Risk 2-dose series) 1978 MMR Vaccines (1 of 2 - Risk 2-dose series) 1994 Cervical Cancer Screening: Pap Smear 1997 COVID-19 Vaccine (3 - Pfizer risk series) 06/03/2021 05/06/2021, 04/15/2021 Pneumococcal Vaccine: Pediatrics (0 to 5 Years) and At-Risk Patients (6 to 49 Years) (3 of 3 - PCV20 or PCV21) 07/20/2021 07/20/2016, 08/01/2015 Hepatitis C Screening 10/30/2022 Social Influencers of Health Screening 10/30/2022 Depression Screening 11/27/2024 Influenza Vaccine (#1) 2025 , 09/05/2019, 02/05/2019 DTaP,Tdap,and Td Vaccines (2 - Td or Tdap) 12/29/2031 12/29/2021 RSV Immunization Adult Patients (1 - 1-dose 75+ series) 2051 Hepatitis A Vaccines Completed 11/13/2014, 11/13/2014, 06/17/2014, Additional history exists Hepatitis B Vaccines Completed 11/13/2014, 11/13/2014, 06/17/2014, Additional history exists HIB Vaccines Aged Out No longer eligi ble based on patient's age to complete this topic HPV Vaccines Aged Out No longer eligi ble based on patient's age to complete this topic IPV Vaccines Aged Out No longer eligi ble based on patient's age to complete this topic Meningococcal B Vaccine Aged Out No l onger eligible based on patient's age to complete this topic RSV Immunization Patients Under 20 months Aged Out No longer eligible based on patient's age to complete this topic Varicella Vaccines Aged Out No longer eligible based on patient's age to complete this topic Procedures Procedure Name Priority Date/Time Associated Diagnosis Comments MR LUMBAR SPINE WO CONTRAST Routine 09/19/2025 11:33 AM EDT Other intervertebral disc degeneration, lumbar region with discogenic back pain and lower extremity pain from Last 3 Months Results * MR Lumbar Spine wo Contrast (09/19/2025 11:33 AM EDT) Anatomical Region Laterality Modality L-spine, Spine Magnetic Resonan ce 09/20/2025 5:06 AM EDT Impressions 09/20/2025 5:11 AM EDT Postsurgical appearance at L4-L5 with mild lumbar spondylosis; not significantly intervally changed from 2020 -------- FINAL REPORT -------- Dictated By: Graciela Oscar Dictated Date: 09/20/2025 05:06 ET Assigned Physician: Graicela Oscar Reviewed and Electronically Signed By: Graciela Oscar Signed Date: 09/20/2025 05:11 ET Workstation ID: [id number] Transcribed By: Self Edit Transcribed Date: 09/20/2025 05:06 ET Narrative 09/20/2025 5:11 AM EDT INDICATION: DDD and back pain COMPARISON: MRI of the lumbar spine dated January 2021 TECHNIQUE: Multiplanar, multisequence MRI was performed of the lumbar spine without IV contrast. FINDINGS: Study assumes 5 lumbar type vertebral bodies. Postsurgical appearance at L4-L5 with associated susceptibility artifact. Mild straightening of the lumbar lordosis. Vertebral body heights are maintained. Conus terminates at T12. Intervertebral body spacer at L4-L5. Specific findings are seen at the following levels: T12-L1:No significant spinal canal stenosis or neural foraminal narrowing on sagittal view L1-L2:No significant spinal canal stenosis or neural foraminal narrowing on sagittal view L2-L3:Mild diffuse disc bulge without significant spinal canal stenosis or neural foraminal narrowing L3-L4:Mild diffuse disc bulge with facet arthropathy which effaces the ventral thecal sac without significant spinal canal stenosis or neural foraminal narrowing. L4-L5: Surgical appearance with susceptibility artifact which limits evaluation. Within these confines, no significant spinal canal stenosis or neural foraminal narrowing L5-S1:Small central/paracentral disc protrusion with ligamentum flavum infolding and facet arthropathy which effaces the ventral thecal sac without significant spinal canal stenosis or neural foraminal narrowing Miscellaneous: T2 hyperintense lesion in the right kidney which statistically represents a cyst Procedure Note Graciela Oscar MD - 09/20/2025 INDICATION: DDD and back pain COMPARISON: MRI of the lumbar spine dated January 2021 TECHNIQUE: Multiplanar, multisequence MRI was performed of the lumbarspine without IV contrast. FINDINGS: Study assumes 5 lumbar type vertebral bodies. Postsurgical appearance atL4-L5 with associated susceptibility artifact. Mild straightening of thelumbar lordosis. Vertebral body heights are maintained. Conus terminatesat T12. Intervertebral body spacer at L4-L5. Specific findings are seenat the following levels: T12-L1:No significant spinal canal stenosis or neural foraminal narrowingon sagittal view L1-L2:No significant spinal canal stenosis or neural foraminal narrowingon sagittal view L2-L3:Mild diffuse disc bulge without significant spinal canal stenosis orneural foraminal narrowing L3-L4:Mild diffuse disc bulge with facet arthropathy which effaces theventral thecal sac without significant spinal canal stenosis or neuralforaminal narrowing. L4-L5: Surgical appearance with susceptibility artifact which limitsevaluation. Within these confines, no significant spinal canal stenosisor neural foraminal narrowing L5-S1:Small central/paracentral disc protrusion with ligamentum flavuminfolding and facet arthropathy which effaces the ventral thecal sacwithout significant spinal canal stenosis or neural foraminal narrowing Miscellaneous: T2 hyperintense lesion in the right kidney whichstatistically represents a cyst IMPRESSION: Postsurgical appearance at L4-L5 with mild lumbar spondylosis; notsignificantly intervally changed from 2020 -------- FINAL REPORT -------- Dictated By: Graciela Oscar Dictated Date: 09/20/2025 05:06 ET Assigned Physician: Graciela Oscar Reviewed and Electronically Signed By: Graciela Oscar Signed Date: 09/20/2025 05:11 ET Workstation ID: [id number] Transcribed By: Self Edit Transcribed Date: 09/20/2025 05:06 ET Cortez Corral MD IMG MRI PROCEDURES Final Resul t from Last 3 Months Care Teams Association Executive Relationship Specialty Start Date End Date Cortez Corral MD PCP - General Internal Medicine 12/04/18
--- OUTSIDE RECORDS SUMMARY | 2025-10-18 08:50 | XMS_ITS | Clinical Summary ---
Author Organization [facility] Address [address] [place] [address] Phone Care Team Providers Care Hydraulic Specialist Name Role Phone Pcp, Unknown Primary Care Provider Unavailabl e Allergies Active Allergy Reactions Criticality Noted Date Comments Amoxicillin 02/26/2018 Mushroom 08/27/2018 Penicillins 02/26/2018 Medications albuterol 90 mcg/actuation inhaler Inhale 2 puffs into the lungs every 6 (six) hours as needed for wheezing or shortness of breath/dyspnea. 1 Inhaler 8 Active benzonatate (TESSALON) 100 MG capsule Take 1 capsule (100 mg total) by mouth 3 (three) times a day as needed for cough. 20 capsule 8 Active Additional Information Patient not taking.Reported on 06/21/2023 LORazepam (ATIVAN) 0.5 MG tablet Take 0.5 mg by mouth daily as needed for anxiety. Active buPROPion (WELLBUTRIN) 75 MG immediate release tablet Take 75 mg by mouth daily. Active bictegravir-emtr icitabine-tenofo vir alafenamide (BIKTARVY) 50-200-25 mg per tablet Take 1 tablet by mouth daily. Active acetaminophen (TYLENOL) 325 mg tablet Take 325 mg by mouth every 4 (four) hours as needed for pain (specific location in comments). Active Immunizations Immunization Administration Dates Next Due COVID-19 (Pre-09/18) Pfizer Vaccine, mRNA, PF ,04/15/2021 Social History Tobacco Use Types Packs/Day Years Used Date Smoking Tobacco: Never Smokeless Tobacco: Never Alcohol Use Standard Drinks/Week Comments Yes 0 (1 standard drink = 0.6 oz pur e alcohol) Education Answer Date Recorded Are you interested in more education? Not on cesia e 03/24/2023 Are you concerned about learning? Not on file 03/24/2023 No 03/24/2023 No 03/24/2023 Digital Access Answer Date Recorded No 04/24/2023 No 04/24/2023 No 04/24/2023 Reliable internet access at home? Not on file 04/24/2023 Device with a working camera? Not on file Intimate Partner Violence Answer Date R ecorded Are you denied basic needs s uch as food, clothing, or medical care? No 12/11/2024 In the past 12 months have y ou been in a relationship with a person who hurts, threatens, or tries to control you? No 12/11/2024 Are you denied basic needs s uch as food, clothing, or medical care? No 12/11/2024 In the past 12 months have y ou been in a relationship with a person who hurts, threatens, or tries to control you? No 12/11/2024 Comments No Sex and Gender Information Value Date Recorded Sex Assigned at Female 02/26/2018 8:47 PM EDT Legal Sex Female 9:28 PM EDT Gender Identity Female 02/26/2018 8:47 PM EDT Sexual Orientation Straight 02/26/2018 8: 47 PM EDT Last Filed Vital Signs Vital Sign Reading Time Taken Comments Blood Pressure 134/67 12/12/2024 2:23 AM EST Pulse 70 12/12/2024 2:00 AM EST Temperature 36.8 C (98.2 F) 12/12/2024 2:23 AM EST Respiratory Rate 18 12/12/2024 2:23 AM EST Oxygen Saturation 95% 12/12/2024 2:00 AM EST Inhaled Oxygen Concentration - - Weight 87.5 kg (193 lb) 06/21/2023 9:48 AM EDT Height 163.8 cm (5' 4.5 ) 06/21/2023 9:48 AM EDT Body Mass Index 32.62 06/21/2023 9:48 AM EDT Plan of Treatment Health Maintenance Due Date Last Done Comments LIPID PANEL 1976 DEPRESSION SCREENING 1988 HEPATITIS C SCREENING 1994 HIV ONE-TIME SCREENING (18-65 YEARS) 1994 PAP SMEAR 1997 SMOKING STATUS SCREENING (Once After 26 Yrs) 2002 SCREENING FOR DIABETES 2011 MAMMOGRAM 2016 COLOGUARD 2021 COLONOSCOPY 2021 COLORECTAL CANCER SCREENING 2021 FIT TEST 2021 FOBT 2021 SIGMOIDOSCOPY 2021 VIRTUAL COLONOSCOPY 2021 INFLUENZA VACCINE (#1) 2025 , 09/05/2019, 02/05/2019, Additional history exists COVID-19 VACCINE ( season) 2025 05/06/2021, 04/15/2021 Adult Td,Tdap Booster 12/29/2031 12/29/2021 HEPATITIS A VACCINES Aged Out 11/13/2014, 11/13/2014, 06/17/2014, Additional history exists No longer eligible based on patient's age to complete this topic PNEUMOCOCCAL VACCINES (0-49 years) Aged Out 07/20/2016, 08/01/2015 No longer eligibl e based on patient's age to complete this topic HIB VACCINES Aged Out No longer eligi ble based on patient's age to complete this topic MENINGOCOCCAL VACCINES (ACWY) Aged Out No longer eligible based on patient's age to complete this topic MENINGOCOCCAL VACCINES (B) Aged Out N o longer eligible based on patient's age to complete this topic Medical Devices Not on file Insurance MEDICARE PART [place] & [place] [facility] & B Member Subscriber Plan / Payer (Ef fective 2003-Present) Name:Vanita Ospina Member ID:[id number] Relation to Subscriber:Self Name:Vanita Ospina Subscriber ID:[id number] Payer ID:[id number] Group ID:Not on file Type:Medicare Address: [facility] [employer] [facility] [employer] [facility] [address] [place] [phone] [facility] & [facility] [place] [facility] PART A & [facility] & [place] & B [facility] Care Teams Hydraulic Specialist Relationship Specialty Start Date End Date Pcp, Unknown PCP - General 12/11/24 Additional Source Comments The information contained in this document represents components of the legal health record. It is not the complete legal health record.[facility]
--- OUTSIDE RECORDS SUMMARY | 2025-10-18 08:50 | XMS_ITS | Encounter Summary ---
Author Organization [facility] Address [address] [place] [address] Phone Care Team Providers Care Book Store Associate Name Role Phone Pcp, Unknown Primary Care Provider Unavailabl e Encounter Details Date Type Department Care Team (Late st Contact Info) Description 12/11/2024 Procedure Pass [facility], Ct Scan - [facility] [address] [place] [address] Social History Tobacco Use Types Packs/Day Years [...] Orientation Straight 02/26/2018 8: 47 PM EDT documented as of this encounter Functional Status * Calculated C-SSRS Risk Score (Lifetime/Recent) Answer Date of Assessment Author No Risk Indicated 12/11/2024 11:19 PM Merline Flower RN * [place] Suicide Severity Rating Scale (Screener/Recent Self-Report) Question Answer Date of Assessment Author 1. Wish to be (Past 1 Month) No 12/11/2024 11:19 PM Merline Curtis RN 2. Non-Specific Active Suicidal Thoughts (Past 1 Month) No 12/11/2024 11:19 PM Merline Curtis RN 6. Suicidal Behavior (Lifetime) No 12/11/2024 11:19 PM Merline Curtis RN documented as of this encounter Plan of Treatment Not on file documented as of this encounter Visit Diagnoses Not on filedocumented in this encounter Additional Health Concerns Infection Onset Date Last Indicated Resolved Time CoV-Risk 12/11/2024 12/11/2024 12/22/2024 1:25 AM EST documented as of this encounter Care Teams Book Store Associate Relationship Specialty Start Date End Date Pcp, Unknown PCP - General 12/11/24 documented as of this encounter Additional Source Comments The information contained in this document represents components of the legal health record. It is not the complete legal health record.[facility]
--- OUTSIDE RECORDS SUMMARY | 2025-10-18 08:50 | XMS_ITS | Patient Health Record ---
Author Organization [facility] Address [address], [place] [address] Care Team Providers Care Button Pusher Name Role Phone ISRA LUCAS Primary Care Provider [phone] ALLERGIES Allergen (clinical drug ingredient) Drug/Non Drug Allergy documented on EMR Reaction Allergy Type Onset Date Status peanuts, cashews (uncoded) cough, tingly lip Allergy Active amoxicillin Amoxicillin rash, throat swelling, cough Drug Allergy Active REASON FOR REFERRAL Reason HOLD FOR LOCKED NOTE Referral for colonoscopy Diagnosis 1 Colon cancer screeni ng (Z12.11) Referral Organization [facility] Referring Provider First Name ISRA Referring Provider Last Name MARANA Referring Provider Speciality Internal edicine Referred Provider SUNNY SIMON Referred Provider Specialty Gastroentero logy General Notes HOLD FOR LOCKED NOTE Referral Priority Urgent Reason 09/08/25 W APPT New pt appt [facility] Allergy Diagnosis 1 Allergic reaction, i nitial encounter (T78.40XA) Referral Organization [facility] Referring Provider First Name ISRA Referring Provider Last Name MARANA Referring Provider Speciality Internal M edicine Referred Provider Specialty Allergy/Immu nology General Notes HOLD, NEHA,Denisse P Adm in 09/08/2025 12:23:13 PM > faxed medical referral, note and most recent labs to [facility] allergy at [phone] requesting an URGENT referral>no referral required Referral Priority Urgent Reason Appt Dr Cruz [facility] Please send MRI Diagnosis 1 Degeneration of inte rvertebral disc of lumbar region with discogenic back pain and lower extremity pain (M51.362) Referral Organization [facility] Referring Provider First Name ISRA Referring Provider Last Name MARANA Referring Provider Speciality Internal edicine Referred Provider KIANA CRUZ Referred Provider Specialty Neurological Surgery Referral Priority Urgent MEDICATIONS Medication SIG (Take, Route, Frequency, Duration) [...] needed O rally Once a day Active IMMUNIZATIONS Vaccine Route Administration Date Status Comme nts Td (Tetanus Diphtheria) Unknown 02/04/2015 Administered SOCIAL HISTORY Tobacco Use: Social History Observation Description Date Details (start date - stop date) Never Smoker NA - NA Sex Assigned At : Social History Observation Description Sex Assigned At Unknown Smoking Question Answer Notes Are you a: never smoker PROBLEMS Problem Type ICD Code Onset Dates Problem Status W/U Status Risk SNOMED Code Notes Problem Morbid (severe) obesity due to excess calories (E66.01) Active confirmed 831142498 Problem Body mass index [BMI] 35.0-35.9, adult (Z68.35) Active confirmed 430245867 Problem Obesity, class 2 (E66.812) Active confirmed 97632928552598 Problem Degeneration of intervertebral disc of lumbar region with discogenic back pain and lower extremity pain (M51.362) Active confirmed 33632652 Problem Vitamin D deficiency, unspecified (E55.9) 010 Active confirmed Vitamin D deficiency (85942607) Problem Human immunodeficiency virus [HIV] disease (B20) 010 Active confirmed Human immunodeficiency virus infection (80920600) VITAL SIGNS Blood pressure diastolic 90 mm Hg 09/04/2025 Height 63.75 in 09/04/2025 Blood pressure systolic 110 mm Hg 09/04/2025 Weight 207.2 lbs 09/04/2025 BMI 35.84 kg/m2 09/04/2025 Encounters Encounter Location Date Provider Diagnosis [facility] [address] [place] [phone] 03/03/2025 ISRA SHAYY Human immunodeficien cy virus [HIV] disease B20 [...] findings Z00.01 and Colon cancer screening Z12.[address] [address] 03/07/[address] [address] 09/04/2025 [facility] Degeneration of intervertebral disc of lumbar region with discogenic back pain and lower extremity pain M51.362 ; Human immunodeficiency virus [HIV] disease B20 and Allergic reaction, initial encounter T78.40XA [address] [address] 09/19/2025 [facility] Degeneration of intervertebral disc of lumbar region with discogenic back pain and lower extremity pain M51.[address] [address] 10/07/[address] [address] 10/08/2025 [facility]ESS[facility] Encounter Date Diagnosis Assessment Notes Treatment Notes Treatment Clinical Notes Section Notes 03/03/2025 Vitamin D deficiency, unspecified (ICD-10 - [...] visit. No treatment at this time 03/03/2025 Human immunodeficiency virus [HIV] disease (ICD-10 [...] her visit. No treatment at this time 09/04/2025 Human immunodeficiency virus [HIV] disease (ICD-10 [...] present. I will send her to the endocrinologist for testing 09/04/2025 Degeneration of intervertebral disc of lumbar [...] present. I will send her to the endocrinologist for testing 09/19/2025 Degeneration of intervertebral disc of lumbar region with discogenic back pain and lower extremity pain (ICD-10 - M51.362) 03/03/2025 Degeneration of intervertebral disc of lumbar [...] her visit. No treatment at this time 09/04/2025 Allergic reaction, initial encounter (ICD-10 - [...] present. I will send her to the endocrinologist for testing 03/03/2025 Morbid (severe) obesity due to excess [...] treatment at this time PLAN OF TREATMENT Future Test Test Name Order Date CBC With Differential/[id number] Next Appt Details Provider Name:ISRA LUCAS , 10/31/2025 02:45:00 PM, [address] [facility], [place], [address], Insurance Providers Payer Name Payer Address Payer Phone Subscriber Number Group Number Insured Name Patient Relationship to Insured Coverage Start Date Coverage End Date MEDICARE [employer] [address] [place] [address] [id number] SUNNY ARMENTA Self - patient is the insured [facility] [address] [place] [address] [id number] SUNNY ARMENTA Self - patient is the insured [facility] [address] [place] [address] [id number] SUNNY ARMENTA Self - patient is the insured 4 8 MEDICAL (GENERAL) HISTORY Medical History History ICD Code Disease : HIV, Surgical History Surgery Date(Month/Year) Disease : Lumbar DDD, Sx_Procedure : L4/ 5fusion
--- OUTSIDE RECORDS SUMMARY | 2025-10-18 08:50 | XMS_ITS | Clinical Summary ---
Author Organization [employer] [facility] Address [address] [place] [address] Care Team Providers Care Skatesman Name Role Phone Cortez Corral MD Primary Care Provider Unavail able Social History Tobacco Use Types Packs/Day Years Used Date Smoking Tobacco: Never Assessed Sex and Gender Information Value Date Recorded Sex Assigned at Not on file Gender Identity Not on file Sexual Orientation Not on file Plan of Treatment Health Maintenance Due Date Last Done Comments Hepatitis C Screening 1976 COVID-19 Vaccine (#1) 1976 Depression Screening 1988 Preventative Health Evaluation 1994 DTap / Tdap / Td (1 - Tdap) 1995 Cervical Cancer Screening (Pap Smear) 1997 Colon Cancer Screening (Colonoscopy) 2021 Influenza Vaccine (#1) 2025 Hepatitis B Vaccines Completed 11/13/2014, 06/17/2014, 05/07/2014 Pneumococcal Vaccine Aged Out 07/20/2016, 08/01/2015 No longer eligible based on patient's age to complete this topic RSV Ped < 20 months Aged Out No longe r eligible based on patient's age to complete this topic Care Teams Skatesman Relationship Specialty Start Date End Date Cortez Corral MD PCP - General Internal Medicine 06/13/18
== END 2025-10-18 08:48 | disposition home or self-care (01) ==
LOC: HO.MAMMO 08:47
PROVIDERS: PCP Internal Medicine; Visit Provider Internal Medicine
DX: Z12.31 Encounter for screening mammogram for malignant neoplasm of breast (principal)
CPT/HCPCS: 77063; 77067

== ENCOUNTER → 2025-10-18 09:00 | Outpatient (BNV) | payer MEDICARE, MEDICAID, SELFPAY | PROVIDERS: PCP Internal Medicine; Visit Provider Radiology Body Imaging | DX: Z12.31 Encounter for screening mammogram for malignant neoplasm of breast (principal) | CPT/HCPCS: 77063; 77067 ==